=== PATIENT | female | born 2000 | race African-American/Black ===

== ENCOUNTER 2018-09-08 04:49 | Inpatient (IN) ==
[2018-09-08] MEDS ORDERED: BUTORPHANOL 2 MG/ML VIAL IV PRN (05:03)
[2018-09-08] MEDS ORDERED: ONDANSETRON 4 MG/2 ML VIAL IV PRN (05:03)
[2018-09-08] MEDS ORDERED: MEPERIDINE 50 MG/1 ML VIAL IV PRN (05:03)
[2018-09-08] MEDS ORDERED: LACTATED RINGERS 250 ML IV ONE (05:03)
[2018-09-08] MEDS ORDERED: OXYTOCIN/LR 20 UNIT/1,000 ML BAG IV SCH (05:30)
[2018-09-08] MEDS ORDERED: LACTATED RINGERS 1,000 ML IV SCH ×2 (05:30→14:30)
[2018-09-08 05:54] LABS: Basophils % 0.3 % (0.0-0.8); Eosinophils # 0.1 10*3/uL (0.0-0.87); Eosinophils % 0.9 % (0.00-10.9); Hematocrit 36.1 VOL% (35.7-47.0); Hemoglobin 11.2 GM/DL (12.0-16.0); Immature Granulocytes % 0.6 %; Immature Granulocytes Absolute 0.04 #; Lymphocytes # 2.2 10*3/uL (1.4-4.0); Lymphocytes % 33.9 % (21.3-54.2); Mean Corpuscular Hemoglobin 25 PG (27-34); Mean Corpuscular Volume 81.9 FL (87-102); Mean Platelet Volume 11.4 FL (9.6-12.0); Monocytes % 14.8 % (1.7-12.7); Neutrophils # 3.2 10*3/uL (1.4-7.4); Neutrophils % 49.5 % (38.7-73.9); Platelet Count 151 T/CUMM (130-400); Red Blood Count 4.41 MC/CUMM (3.8-5.5); Red Cell Distribution Width 15.4 % (9.3-17.3); White Blood Count 6.4 T/CUMM (4-12)
[2018-09-08] MEDS ORDERED: AMPICILLIN INJ 2,000 MG in SODIUM CHLORIDE 0.9% 100 ML IV ONE (06:00)
[2018-09-08] MEDS ORDERED: AMPICILLIN 2,000 MG VIAL ONE (06:10)
[2018-09-08 09:16] LABS: Apearance,Urine CLOUDY (Clear); Bilirubin,Urine Negative (Negative); Blood, Urine Small mg/dL (Negative); Glucose,Urine (UA) Negative (Negative); Ketones,Urine 5 mg/dL (Negative); Mucus,Urine Few /LPF (Occasional); Nitrite,Urine Negative (Negative); Protein,Urine 100 MG/DL; RBC,Urine 2 /HPF (0-4); Squamous Epithelial Cell,Urine Occasional /HPF (0-10); Urine Color Amber (Yellow); Urine Specific Gravity 1.043 (1.001-1.035); Urine Urobilinogen < 2.0 EU/DL (0.2-1.0); WBC,Urine 118 /HPF (0-6)
[2018-09-08] MEDS ORDERED: LIDOCAINE 1% 50 ML VIAL ONE (10:20)
[2018-09-08] MEDS ORDERED: miSOPROStol 200 MCG TABLET ONE (10:20)
[2018-09-08] MEDS ORDERED: METHYLERGONOVINE 0.2 MG/1 ML AMP ONE (10:21)
[2018-09-08] MEDS ORDERED: AMPICILLIN INJ 1,000 MG in SODIUM CHLORIDE 0.9% 100 ML IV SCH (10:30)
[2018-09-08] MEDS ORDERED: IBUPROFEN 800 MG TABLET PO PRN (12:22)
[2018-09-08] MEDS ORDERED: BISACODYL 10 MG SUPP RECTAL PRN (14:12)
[2018-09-08] MEDS ORDERED: MAGNESIUM HYDROXIDE SUSP 30 ML UDCUP PO PRN (14:12)
[2018-09-08] MEDS ORDERED: ACETAMINOPHEN 325 MG TABLET PO PRN (14:12)
[2018-09-08] MEDS ORDERED: ACETAMINOPHEN/CODEINE 300-30 MG TABLET PO PRN (16:25)
[2018-09-08] MEDS: DOCUSATE SODIUM 100 MG CAPSULE PO SCH (21:40)
[2018-09-09 06:15] LABS: Basophils % 0.2 % (0.0-0.8); Eosinophils # 0.1 10*3/uL (0.0-0.87); Eosinophils % 0.5 % (0.00-10.9); Hematocrit 30.7 VOL% (35.7-47.0); Hemoglobin 9.8 GM/DL (12.0-16.0); Immature Granulocytes % 0.5 %; Immature Granulocytes Absolute 0.05 #; Lymphocytes # 2.2 10*3/uL (1.4-4.0); Lymphocytes % 20.2 % (21.3-54.2); Mean Corpuscular HGB Conc 31.9 GM/DL (32-36); Mean Corpuscular Hemoglobin 26 PG (27-34); Mean Corpuscular Volume 80.6 FL (87-102); Mean Platelet Volume 12.2 FL (9.6-12.0); Monocytes # 1.4 10*3/uL (0.11-0.8); Monocytes % 12.6 % (1.7-12.7); Neutrophils # 7.3 10*3/uL (1.4-7.4); Platelet Count 141 T/CUMM (130-400); Red Blood Count 3.81 MC/CUMM (3.8-5.5); Red Cell Distribution Width 15.5 % (9.3-17.3); White Blood Count 11.1 T/CUMM (4-12)
[2018-09-09] MEDS ORDERED: BENZOCAINE 20%/MENTHOL 0.5% SPRAY 56 GM CAN TOP PRN (08:24)
[2018-09-09] MEDS: DOCUSATE SODIUM 100 MG CAPSULE PO SCH ×2 (09:36→21:08)
[2018-09-09] MEDS: MULTIVITAMIN (PRENATAL) TABLET PO SCH (09:36)
[2018-09-09] MEDS ORDERED: POLYVINYL ALCOHOL 1.4% OPH SOLN 15 ML BOTTLE BOTH EYES PRN (17:41)
[2018-09-10] MEDS: DOCUSATE SODIUM 100 MG CAPSULE PO SCH (09:30)
[2018-09-10] MEDS: MULTIVITAMIN (PRENATAL) TABLET PO SCH (09:30)
[2018-09-10 11:40] VITALS: BP 108/51
== END 2018-09-10 13:35 | disposition home or self-care (01) | DRG 560 ==
LOC: N.LDOUT 04:49 → N.LD 04:53 → N.OB 16:54
PROVIDERS: ADMIT Obstetrics & Gynecology; ATTEND Obstetrics & Gynecology